=== PATIENT | female | born 2000 | race Caucasian/White ===

== ENCOUNTER 2024-05-15 18:45 | Emergency (ER) | payer OTHER ==
[~2024-05-15] VITALS: Ht 160 cm; Wt 73.0 kg
[2024-05-15] MEDS ORDERED: CELEXA10 MG PO (19:20)
[2024-05-15 19:33] LABS: BILIRUBIN, URINE NEGATIVE (negative); BLOOD/HGB, URINE LARGE (Negative); KETONE, URINE NEGATIVE (Negative); LEUK ESTERASE, URINE SMALL (negative); NITRITE, URINE NEGATIVE (negative); PH, URINE 5.5 (5-7)
[2024-05-15 19:46] LABS: BACTERIA, URINE 1+ /hpf (negative); CRYSTALS, URINE NONE SEEN (0-1+); EPITHELIAL CELLS, URINE SQUAMOUS 2+ /lpf (0-1+); RED BLOOD CELLS, URINE 41-50 /hpf (0-5)
[2024-05-15 19:47] LABS: CASTS, URINE HYALINE 1+ \\lpf; COLLECTION TYPE, URINE CLEAN CATCH; REFLEX CULTURE, URINE No (No)
[2024-05-15] MEDS ORDERED: SPRINTEC1 EACH PO ×2 (20:09→20:10)
[2024-05-15 20:21] VITALS: BP 111/69
== END 2024-05-15 20:22 | disposition home or self-care (01) ==
LOC: ED 18:45
PROVIDERS: Internal Medicine
DX: N92.0 Excessive and frequent menstruation with regular cycle (principal); Z79.899 Other long term (current) drug therapy
CPT/HCPCS: 80053; 81001; 84703; 85025; 85610; 85730; 99284

== ENCOUNTER 2024-08-04 11:46 | Emergency (ER) | payer OTHER ==
[~2024-08-04] VITALS: Ht 160 cm; Wt 70.0 kg
[~2024-08-04 11:46] MED LIST: CELEXA10 MG PO; SPRINTEC1 EACH PO
[2024-08-04] MEDS ORDERED: VENTOLIN HFA18 GM (12:09)
[2024-08-04 14:00] VITALS: BP 121/74
--- NOTE | 2024-08-05 19:12 | EKG ---
[facility] [address] [facility] [place], [place] [address] Signed Normal sinus rhythm Normal ECG No previous ECGs available Confirmed by Elizabeth Carter MD ([id number]) on 08/05/2024 7:12:09 PM Electronically Signed By: ELIZABETH CARTER MD 08/05/241911 PATIENT NAME: EVELYN NEGRO V Electrocardiogram DATE OF : [birth year] PHYSICIAN: ELIZABETH CARTER MD REPORT #: [id number] REPORT IS CONFIDENTIAL AND NOT TO BE RELEASED WITHOUT AUTHORIZATION
== END 2024-08-04 14:00 | disposition home or self-care (01) ==
LOC: ED 11:46
DX: R07.9 Chest pain, unspecified (principal); J45.909 Unspecified asthma, uncomplicated
CPT/HCPCS: 93005; 93010; 99284

== ENCOUNTER 2025-03-30 09:22 | Emergency (ER) | payer OTHER ==
[~2025-03-30] VITALS: Ht 160 cm; Wt 69.4 kg
[~2025-03-30 09:22] MED LIST changes: +VENTOLIN HFA18 GM
[2025-03-30] MEDS ORDERED: PROCHLORPERAZINE EDISYLATE 10 MG/2 ML VIAL IV ONE (10:45)
[2025-03-30] MEDS ORDERED: PROPRANOLOL HCL10 MG PO (11:20)
[2025-03-30] MEDS ORDERED: ACETAMINOPHEN 500 MG TAB PO ONE (11:30)
[2025-03-30 12:45] VITALS: BP 99/58
== END 2025-03-30 12:46 | disposition home or self-care (01) ==
LOC: ED 09:22
DX: S06.0X0A Concussion without loss of consciousness, initial encounter (principal); W10.9XXA Fall (on) (from) unspecified stairs and steps, initial encounter; J45.909 Unspecified asthma, uncomplicated
CPT/HCPCS: 70450; 99283-25; A9270